=== PATIENT | female | born 1970 | race African-American/Black ===

== ENCOUNTER 2017-03-18 13:27 | Day surgery (SDC) | payer OTHER, BC ==
[2017-03-18 14:25] VITALS: BMI 21.4
[2017-03-18] MEDS ORDERED: PROPOFOL 20 ML ONE ×2 (15:07)
[2017-03-18 15:58] VITALS: TEMP 97.7
[2017-03-18 16:55] VITALS: BP 122/71; PULSE 59
== END 2017-03-18 16:55 | disposition home or self-care (01) ==
LOC: JASU-ENDO 13:27
PROVIDERS: ATTEND Internal Medicine Gastroenterology
PROC: 0DJD8ZZ Inspection of Lower Intestinal Tract, Via Natural or Artificial Opening Endoscopic (ICD-10-PCS; principal; 2017-03-18 14:30)
DX: Z12.11 Encounter for screening for malignant neoplasm of colon (principal); K57.30 Diverticulosis of large intestine without perforation or abscess without bleeding; K64.8 Other hemorrhoids; K63.89 Other specified diseases of intestine

== ENCOUNTER 2017-07-06 13:19 | Emergency (ER) | payer OTHER, BC ==
[2017-07-06 13:30] VITALS: BP 136/95; PULSE 96; TEMP 98.7; BMI 21.4
--- NOTE | 2017-07-06 13:44 | PDOC ---
History of Present Illness - General Chief Complaint: Headache Stated Complaint: HEADACHE Time Seen by Provider: 07/06/17 13:39 - History of Present Illness Initial Comments: 07/06/17 15:55 Chief complaint: Headache History of present illness: Patient complains of a recurrent headache for the last several days, intermittent, bandlike around the forehead, radiating to the occiput and both shoulders. Review of systems: No fever/chills, URI symptoms, sore throat, cough, chest pain , shortness of breath, abdominal pain, nausea, vomiting, diarrhea, visual or focal neurologic symptoms, unsteadiness of gait. Remainder systems reviewed and found to be negative Past medical history: Extensive past medical history including scleroderma, Raynaud's phenomenon, chronic neck and back pain, depression, anxiety, GERD, breast cancer in remission over 5 years. Medications: Extensive list of medications including nifedipine, Lyrica, morphine, Tylenol No. 4, Zantac, Klonopin, Wellbutrin, and Cymbalta. Social history: On disability, no alcohol or tobacco or drugs, stable home with family Family history: Reviewed and noncontributory including rheumatologic an autoimmune diseases, early coronary artery disease, metabolic disease including diabetes, and cancer Physical exam: Alert oriented 3 no acute distress cooperative Afebrile, vital signs normal Head atraumatic. PERRLA 4 mm, fundi benign with sharp disc margins and good central venous pulsations, ENT clear Neck supple without bruit mass or nodes Lungs clear with full breath sounds bilaterally. No wheezes rales or rhonchi CV S1 and S2 normal without murmur rub or gallop pulses full and symmetric no JVD or edema no bruits Abdomen benign Neurological C2 to 12 intact. No focal sensory or motor deficits. Strength symmetric. Gait stable and unimpaired. Cerebellar intact Extremities: Mild erythema and tapering of the fingertips consistent with scleroderma. Also some tightening of the skin is present in the face. Impression: Tension headache, versus migraine. Anxiety. Plan: Symptomatic treatment. Contact neurologist. Observe. Past History - Past Medical History Allergies/Adverse Reactions: Allergies Allergy/AdvReac Type Severity Reaction Status Date / Time No Known Drug Allergies Allergy Verified 07/06/17 13:20 NUTS Allergy ITCHING, Uncoded 07/06/17 13:20 DIFFICULTY BREATHING SEASONAL Allergy SNEEZING,WATERY Uncoded 07/06/17 13:20 EYES Home Medications: Ambulatory Orders Albuterol 0.083% Nebulizer Keisha [Ventolin 0.083% Nebulizer Soln -] 1 neb NEB Q4H PRN #1 box 01/16/13 Nifedipine ER 60 mg PO DAILY 06/02/15 Pregabalin [Lyrica] 150 mg PO DAILY 06/02/15 Methylphenidate HCl [Ritalin LA] 10 mg PO DAILY 06/03/15 Bupropion HCl [Wellbutrin Xl] 300 mg PO DAILY 03/18/17 Clonazepam [KlonoPIN] 0.5 mg PO TID 03/18/17 Methocarbamol 500 mg PO HS 03/18/17 Morphine Sulfate [Morphine Sulfate ER] 15 mg PO BID 03/18/17 Naloxegol Oxalate [Movantik] 12.5 mg PO DAILY 03/18/17 Ranitidine [Zantac -] 150 mg PO DAILY 03/18/17 Acetaminophen W/ Codeine #3 [Tylenol # 3 -] 1 tab PO PRN PRN 07/06/17 Anastrozole [Arimidex -] 1 mg PO DAILY 07/06/17 Bupropion HCl [Bupropion Xl] 300 mg PO DAILY 07/06/17 Diclofenac Sodium 50 mg PO TID PRN #15 tablet. 07/06/17 Duloxetine HCl [Cymbalta -] 30 mg PO DAILY 07/06/17 Hydroxyzine Pamoate [Vistaril -] 2 tab PO TID PRN #15 capsule 07/06/17 Anemia: Yes Asthma: Yes Cancer: Yes (LT BREAST) Cardiac Disorders: Yes (MVP,TACHYCARDIA) CVA: No COPD: No CHF: No Dementia: No Diabetes: No GI Disorders: Yes (DIVERTICULOSIS, IBS,HIatal hernia) Disorders: Yes (CYSTITIS) HTN: No Hypercholesterolemia: No Kidney Stones: Yes Liver Disease: No Psychiatric Problems: Yes (DEPRESSION,ANXIETY) Seizures: No Thyroid Disease: No Other medical history: REYNODS,SCLERADERMA,MIGRAINES,ULCERS, - Surgical History Abdominal Surgery: Yes Appendectomy: Yes Cardiac Surgery: No Cholecystectomy: No Lung Surgery: (collapse lungs) Neurologic Surgery: No Orthopedic Surgery: No - Immunization History Immunization Up to Date: Yes - Suicide/Smoking/Psychosocial Hx Smoking Status: No Smoking History: Current some day smoker Have you smoked in the past 12 months: Yes Number of Cigarettes Smoked Daily: 0 Information on smoking cessation initiated: Yes 'Breaking Loose' booklet given: 07/06/17 Hx Alcohol Use: No Drug/Substance Use Hx: No Substance Use Type: None Hx Substance Use Treatment: No *Physical Exam - Vital Signs Last Vital Signs Temp Pulse Resp BP Pulse Ox 98.7 F 96 H 20 136/95 99 07/06/17 13:20 07/06/17 13:20 07/06/17 13:20 07/06/17 13:20 07/06/17 13:20 ED Treatment Course - LABORATORY CBC & Chemistry Diagram: 07/06/17 14:30 07/06/17 14:30 Medical Decision Making - Medical Decision Making 07/06/17 16:00 Dr. Garcia contacted by phone. He is the patient's neurologist and knows her well. A recent see CT scan was negative and he does not recommend further imaging. Symptomatic treatment recommended and he will see the patient on Saturday in his office for further evaluation and treatment. Patient is improved with medication. Headache is resolving and she is much more relaxed, less anxious. Discharge with her son fully ambulatory and in no acute distress to follow-up as recommended with Dr. Garcia, or return to the emergency room if symptoms worsen. *DC/Admit/Observation/Transfer Diagnosis at time of Disposition: Migraine Qualifiers: Migraine type: other Status migrainosus presence: without status migrainosus Intractability: not intractable Qualified Code(s): G43.809 - Other migraine, not intractable, without status migrainosus - Discharge Dispostion Disposition: HOME Condition at time of disposition: Improved Admit: No - Prescriptions Prescriptions: Diclofenac Sodium 50 mg PO TID PRN #15 tablet.dr MUSE Reason: Headache Hydroxyzine Pamoate [Vistaril -] 2 tab PO TID PRN #15 capsule PRN Reason: headache, spasm. - Referrals Referrals: Jose Garcia MD [Staff Physician] - 2 Days - Patient Instructions Printed Discharge Instructions: DI for Migraine Additional Instructions: Rest, fluids, and medication as directed. See Dr. Garcia in 2 days for recheck. Return to the ER if symptoms worsen or any new symptoms develop. He has been contacted by phone and recommended that he see him on Saturday. - Post Discharge Activity
[2017-07-06] MEDS ORDERED: KETOROLAC TROMETHAMINE 30 MG/1 ML VIAL IVPUSH ONE (14:14)
[2017-07-06] MEDS ORDERED: hydrOXYzine PAMOATE 25 MG CAPSULE (FP) PO ONE ×2 (14:15→14:28)
[2017-07-06] MEDS ORDERED: KETOROLAC TROMETHAMINE 30 MG/1 ML VIAL ONE (14:28)
[2017-07-06 14:51] LABS: HEMATOCRIT 43.9 % (32.4-45.2); HEMOGLOBIN 14.5 GM/dl (10.7-15.3); MCH 30.7 pg (25.7-33.7); MEAN PLT VOLUME 8.3 fl (7.5-11.1); PLATELET COUNT 414 K/MM3 (134-434); RBC 4.72 M/mm3 (3.60-5.2); RDW 12.7 % (11.6-15.6); WHITE BLOOD COUNT 6.2 K/mm3 (4.0-10.8)
[2017-07-06 14:53] LABS: ADD RBC MORPHOLOGY YES
[2017-07-06 14:56] LABS: ALBUMIN 4.7 g/dl (3.5-5.0); ALK PHOS 61 U/L (32-92); ANION GAP 9 (8-16); BILIRUBIN,TOTAL 0.5 mg/dl (0.2-1.0); BLOOD UREA NITROGEN 23 mg/dl (7-18); CALCIUM 10.1 mg/dl (8.4-10.2); CHLORIDE 100 mmol/L (98-107); CO2 24 mmol/L (22-28); GLUCOSE,RANDOM 108 mg/dl (74-106); POTASSIUM 4.1 mmol/L (3.5-5.1); SGOT/AST 17 U/L (10-42); SGPT/ALT 14 U/L (10-40); SODIUM 133 mmol/L (136-145)
[2017-07-06] MEDS ORDERED: SODIUM CHLORIDE 500 ML IV STA (14:57)
[2017-07-06 14:59] LABS: PLATELET ESTIMATE ADEQUATE
== END 2017-07-06 15:39 | disposition home or self-care (01) ==
LOC: FER 13:19
PROC: 3E0233Z Introduction of Anti-inflammatory into Muscle, Percutaneous Approach (ICD-10-PCS; principal; 2017-07-06)
PROC: 3E0337Z Introduction of Electrolytic and Water Balance Substance into Peripheral Vein, Percutaneous Approach (ICD-10-PCS; 2017-07-06)
DX: G43.809 Other migraine, not intractable, without status migrainosus (principal); F41.8 Other specified anxiety disorders; M34.9 Systemic sclerosis, unspecified; J45.909 Unspecified asthma, uncomplicated; Z85.3 Personal history of malignant neoplasm of breast
CPT/HCPCS: 36415; 80053; 84703; 85025; 85651; 96361; 96374; 99282-25

== ENCOUNTER 2018-03-04 11:46 | Day surgery (SDC) | payer OTHER, BC ==
[2018-03-04 12:37] VITALS: BMI 23.4
[2018-03-04 13:10] VITALS: TEMP 97.6
[2018-03-04 14:57] VITALS: BP 109/72; PULSE 68
--- NOTE | 2018-03-06 15:32 | PATH ---
Surgical Pathology Report Patient Name: VERONICA LEHMAN [facility]. Rec. #: [id number] /Age/Gender: 1970 (Age: 47) / F Account: [id number] Location: [facility]-ENDOSCOPY Taken: 03/04/2018 Received: 03/04/2018 Reported: 03/06/2018 Physicians: Josué Dobbs D.O. Specimen(s) Received A: BX ANTRUM EROSION B: BX BODY AND ANGULARIS Clinical History Abnormal x-ray finding Postoperative diagnosis: Gastritis Final Diagnosis A. ANTRAL EROSION, BIOPSY: MILD CHRONIC GASTRITIS. IMMUNOSTAIN IS NEGATIVE FOR H PYLORI ORGANISMS. B. ANGULARIS AND BODY, BIOPSY: MILD CHRONIC GASTRITIS. IMMUNOSTAIN IS NEGATIVE FOR H. PYLORI ORGANISMS. Electronically Signed Nneka Oropeza M.D. Gross Description A. Received in formalin, labeled "biopsy antral erosion" are 3 dwyer, irregular portions of soft tissue ranging from 0.1-0.3 cm. in greatest dimension. The specimens are submitted in toto in one cassette. B. Received in formalin, labeled "biopsy angularis and body" are 3 dwyer, irregular portions of soft tissue ranging from 0.2-0.5 cm. in greatest dimension. The specimens are submitted in toto in one cassette. 03/04/2018 saudi03/04/2018
== END 2018-03-04 14:25 | disposition home or self-care (01) ==
LOC: JASU-ENDO 11:46
PROVIDERS: ATTEND Internal Medicine Gastroenterology
PROC: 0DB68ZX Excision of Stomach, Via Natural or Artificial Opening Endoscopic, Diagnostic (ICD-10-PCS; principal; 2018-03-04 10:15)
DX: K29.50 Unspecified chronic gastritis without bleeding (principal)
CPT/HCPCS: 84703; 88305-TC; 88342-TC

== ENCOUNTER 2020-05-14 16:14 | Inpatient (IN) | payer OTHER, BC ==
[2020-05-14] MEDS ORDERED: ACETAMINOPHEN 1000 MG/100 ML VIAL (NON FORMULARY) IVPB ONE (17:31)
[2020-05-14 17:37] LABS: BASO % 0.5 % (0-2.0); EOS % 0.2 % (0-4.5); HEMATOCRIT 41.1 % (32.4-45.2); HEMOGLOBIN 13.7 GM/dL (10.7-15.3); LYMPH % 7.4 % (8-40); MCH 30.7 pg (25.7-33.7); MCHC 33.3 g/dl (32.0-36.0); MEAN CELL VOLUME 92.2 fl (80-96); MEAN PLT VOLUME 8.4 fl (7.5-11.1); MONO % 5.1 % (3.8-10.2); NEUT % 86.8 % (42.8-82.8); PLATELET COUNT 364 K/MM3 (134-434); RBC 4.46 M/mm3 (3.60-5.2); RDW 13.9 % (11.6-15.6); WHITE BLOOD COUNT 8.9 K/mm3 (4.0-10.0)
[2020-05-14] MEDS ORDERED: ACETAMINOPHEN INJECTION 100 ML IVPB ONE (17:48)
[2020-05-14 17:49] LABS: INR 1.1 (0.83-1.09); PROTHROMBIN TIME (PATIENT) 13.3 SEC (9.7-13.0)
[2020-05-14 17:51] LABS: POTASSIUM 4.6 mmol/L (3.5-5.1)
[2020-05-14 17:52] LABS: ACTIVATED PTT 36.8 SECONDS (25.2-36.5)
[2020-05-14 17:54] LABS: ALBUMIN 2.4 g/dl (3.4-5.0); CALCIUM 7.3 mg/dL (8.5-10.1); MAGNESIUM 2.9 mg/dL (1.8-2.4)
[2020-05-14 17:56] LABS: BILIRUBIN,DIRECT 0.2 mg/dL (0.0-0.2)
[2020-05-14 17:57] LABS: CREATININE 0.6 mg/dL (0.55-1.3)
[2020-05-14 17:58] LABS: VENOUS BASE EXCESS -0.6 mmol/L (-2-2); VENOUS O2 SATURATION 33.7 % (70-80); VENOUS PCO2 41.7 mmHg (38-52); VENOUS PH 7.386 (7.310-7.410)
[2020-05-14 17:59] LABS: BILIRUBIN,TOTAL 0.6 mg/dL (0.2-1); TOT PROT 5.7 g/dl (6.4-8.2)
[2020-05-14 18:00] LABS: N-TERMINAL BNP 1099.5 pg/ml (5-125)
[2020-05-14] MEDS ORDERED: DEXAMETHASONE SOD PHOSPHATE 10 MG/1 ML VIAL IVPUSH ONE (19:05)
[2020-05-14] MEDS ORDERED: CEFTRIAXONE 1,000 MG in DEXTROSE 5%-WATER - 50 ML IVPB ONE (19:05)
[2020-05-14] MEDS ORDERED: AZITHROMYCIN IVPB 500 MG in DEXTROSE 5%-WATER - 250 ML IVPB ONE (19:05)
[2020-05-14] MEDS ORDERED: ASPIRIN 81 MG CHEWABLE TABLETS PO ONE (19:11)
[2020-05-14] MEDS ORDERED: ASPIRIN 81 MG CHEWABLE TABLETS ONE (20:33)
[2020-05-14] MEDS ORDERED: CEFTRIAXONE 1 GM/50 ML BAG ONE (20:33)
[2020-05-14] MEDS ORDERED: DEXAMETHASONE SOD PHOSPHATE 10 MG/1 ML VIAL ONE (20:33)
[2020-05-14] MEDS ORDERED: AZITHROMYCIN IVPB 500 MG/250 ML BAG IVPB ONE (20:33)
[2020-05-14] MEDS ORDERED: SODIUM CHLORIDE 500 ML IV STA (22:05)
[2020-05-14 23:01] LABS: URINE APPEARANCE CLEAR; URINE BILIRUBIN NEGATIVE (NEGATIVE); URINE COLOR YELLOW; URINE GLUCOSE (UA) NEGATIVE (NEGATIVE); URINE KETONE 15 mg/dl (NEGATIVE); URINE NITRITE NEGATIVE (NEGATIVE); URINE PROTEIN 100 (NEGATIVE); URINE UROBILINOGEN 0.2 mg/dL (0.2-1.0)
[2020-05-14 23:02] LABS: URINE LEUK ESTERASE 1+ (NEGATIVE)
[2020-05-14] MEDS ORDERED: ZINC SULFATE 220 MG CAPSULE (FP) ONE (23:11)
[2020-05-14] MEDS ORDERED: ENOXAPARIN NA (PORCINE) 60 MG/0.6 ML DISP.SYRIN SQ ONE (23:11)
[2020-05-14] MEDS ORDERED: ASCORBIC ACID 500 MG TABLET (FP) ONE (23:11)
[2020-05-14] MEDS: ENOXAPARIN NA (PORCINE) 60 MG/0.6 ML DISP.SYRIN SQ SCH (23:28)
[2020-05-14] MEDS: ASCORBIC ACID 500 MG TABLET (FP) PO SCH (23:29)
[2020-05-14] MEDS: ZINC SULFATE 220 MG CAPSULE (FP) PO SCH (23:29)
[2020-05-15] MEDS ORDERED: QUEtiapine FUMARATE 100 MG TABLET (FP) ONE (00:20)
[2020-05-15] MEDS ORDERED: SODIUM CHLORIDE 500 ML IV STA (06:24)
[2020-05-15 07:29] LABS: BASO % 0.4 % (0-2.0); EOS % 0.1 % (0-4.5); HEMATOCRIT 36.6 % (32.4-45.2); HEMOGLOBIN 12.1 GM/dL (10.7-15.3); LYMPH % 9.3 % (8-40); MCH 30.1 pg (25.7-33.7); MEAN CELL VOLUME 91.2 fl (80-96); MEAN PLT VOLUME 8.7 fl (7.5-11.1); MONO % 5.1 % (3.8-10.2); NEUT % 85.1 % (42.8-82.8); PLATELET COUNT 410 K/MM3 (134-434); RBC 4.01 M/mm3 (3.60-5.2); RDW 14.2 % (11.6-15.6); WHITE BLOOD COUNT 5.4 K/mm3 (4.0-10.0)
[2020-05-15 07:36] LABS: POTASSIUM 4.5 mmol/L (3.5-5.1)
[2020-05-15 07:46] LABS: CALCIUM 7.4 mg/dL (8.5-10.1)
[2020-05-15 07:47] LABS: ALBUMIN 2.3 g/dl (3.4-5.0); MAGNESIUM 2.8 mg/dL (1.8-2.4)
[2020-05-15 07:49] LABS: CREATININE 0.5 mg/dL (0.55-1.3)
[2020-05-15 07:50] LABS: PHOSPHOROUS 3.7 mg/dL (2.5-4.9)
[2020-05-15 07:51] LABS: BILIRUBIN,TOTAL 0.9 mg/dL (0.2-1); TOT PROT 5.6 g/dl (6.4-8.2)
[2020-05-15] MEDS ORDERED: DEXAMETHASONE SOD PHOSPHATE 4 MG/1 ML VIAL ONE (08:06)
[2020-05-15] MEDS ORDERED: FAMOTIDINE 20 MG TABLET ONE (08:06)
[2020-05-15] MEDS ORDERED: ZINC SULFATE 220 MG CAPSULE (FP) ONE (08:06)
[2020-05-15] MEDS ORDERED: ASCORBIC ACID 500 MG TABLET (FP) ONE (08:06)
[2020-05-15] MEDS ORDERED: ENOXAPARIN NA (PORCINE) 60 MG/0.6 ML DISP.SYRIN SQ ONE (08:07)
[2020-05-15] MEDS ORDERED: PT OWN MED DRAWER 7, Y5N ONE (08:07)
[2020-05-15] MEDS ORDERED: CEFTRIAXONE 1 GM/50 ML BAG ONE (08:07)
[2020-05-15] MEDS: CHOLECALCIFEROL (VIT D3) 1,000 UNIT (25 MCG) TABLET PO SCH (09:51)
[2020-05-15] MEDS: DEXAMETHASONE SOD PHOSPHATE 4 MG/1 ML VIAL IVPUSH SCH (09:51)
[2020-05-15] MEDS: ZINC SULFATE 220 MG CAPSULE (FP) PO SCH ×2 (09:51→22:59)
[2020-05-15] MEDS: ENOXAPARIN NA (PORCINE) 60 MG/0.6 ML DISP.SYRIN SQ SCH ×2 (09:51→22:58)
[2020-05-15] MEDS: FAMOTIDINE 20 MG TABLET PO SCH (09:51)
[2020-05-15] MEDS: CEFTRIAXONE 1 GM in DEXTROSE 5%-WATER - 50 ML IVPB SCH (09:52)
[2020-05-15] MEDS: ASCORBIC ACID 500 MG TABLET (FP) PO SCH ×2 (09:52→22:59)
[2020-05-15] MEDS ORDERED: AZITHROMYCIN IVPB 250 MG in DEXTROSE 5%-WATER - 250 ML IVPB SCH (10:00)
[2020-05-15] MEDS ORDERED: REMDESIVIR 200 MG in SODIUM CHLORIDE 210 ML IVPB ONE (20:00)
[2020-05-15] MEDS ORDERED: ASPIRIN 81 MG CHEWABLE TABLETS PO ONE (20:36)
[2020-05-15] MEDS ORDERED: QUEtiapine FUMARATE 100 MG TABLET (FP) PO SCH (22:00)
[2020-05-15] MEDS ORDERED: FLU VACCINE (FLULAVAL) PF 60 MCG/0.5 ML SYRINGE 2020-2021 IM ONE (22:37)
[2020-05-15] MEDS ORDERED: PNEUMOC 13-VAL CONJ-DIP CRM/PF 0.5 ML DISP.SYRIN IM ONE (22:37)
[2020-05-15] MEDS: QUEtiapine FUMARATE 100 MG TABLET (FP) PO SCH (22:59)
[2020-05-16 07:23] LABS: BASO % 0.2 % (0-2.0); HEMATOCRIT 32.8 % (32.4-45.2); HEMOGLOBIN 10.7 GM/dL (10.7-15.3); LYMPH % 8.9 % (8-40); MCHC 32.8 g/dl (32.0-36.0); MEAN CELL VOLUME 91.5 fl (80-96); MEAN PLT VOLUME 8.2 fl (7.5-11.1); NEUT % 82.9 % (42.8-82.8); PLATELET COUNT 492 K/MM3 (134-434); RBC 3.58 M/mm3 (3.60-5.2); RDW 13.9 % (11.6-15.6)
[2020-05-16 07:46] LABS: POTASSIUM 4.3 mmol/L (3.5-5.1)
[2020-05-16 07:53] LABS: CALCIUM 8.2 mg/dL (8.5-10.1)
[2020-05-16 07:54] LABS: ALBUMIN 2.5 g/dl (3.4-5.0); BLOOD UREA NITROGEN 15.3 mg/dL (7-18); MAGNESIUM 2.8 mg/dL (1.8-2.4)
[2020-05-16 07:57] LABS: CREATININE 0.5 mg/dL (0.55-1.3)
[2020-05-16 07:58] LABS: BILIRUBIN,TOTAL 0.4 mg/dL (0.2-1); TOT PROT 5.6 g/dl (6.4-8.2)
[2020-05-16] MEDS ORDERED: cefTRIAXone SODIUM 1 GM VIAL ONE (09:56)
[2020-05-16] MEDS ORDERED: DEXTROSE 5%-WATER - 50 ML IVPB ONE (09:56)
[2020-05-16] MEDS: ASPIRIN 81 MG CHEWABLE TABLETS PO SCH (10:32)
[2020-05-16] MEDS: ENOXAPARIN NA (PORCINE) 60 MG/0.6 ML DISP.SYRIN SQ SCH ×2 (10:32→21:34)
[2020-05-16] MEDS: DEXAMETHASONE SOD PHOSPHATE 4 MG/1 ML VIAL IVPUSH SCH (10:32)
[2020-05-16] MEDS: ZINC SULFATE 220 MG CAPSULE (FP) PO SCH ×2 (10:33→21:34)
[2020-05-16] MEDS: ASCORBIC ACID 500 MG TABLET (FP) PO SCH ×2 (10:33→21:34)
[2020-05-16] MEDS: CHOLECALCIFEROL (VIT D3) 1,000 UNIT (25 MCG) TABLET PO SCH (10:33)
[2020-05-16] MEDS: FAMOTIDINE 20 MG TABLET PO SCH (10:33)
[2020-05-16] MEDS: CEFTRIAXONE 1 GM in DEXTROSE 5%-WATER - 50 ML IVPB SCH (10:33)
[2020-05-16] MEDS: REMDESIVIR 100 MG in SODIUM CHLORIDE 230 ML IVPB SCH (10:33)
[2020-05-16] MEDS: QUEtiapine FUMARATE 100 MG TABLET (FP) PO SCH (21:34)
[2020-05-16] MEDS ORDERED: MELATONIN 5 MG TABLETS PO ONE (23:38)
[2020-05-17 06:48] LABS: BASO % 0.1 % (0-2.0); EOS % 0.1 % (0-4.5); HEMATOCRIT 33.4 % (32.4-45.2); HEMOGLOBIN 10.7 GM/dL (10.7-15.3); LYMPH % 8.8 % (8-40); MCH 29.4 pg (25.7-33.7); MCHC 32.1 g/dl (32.0-36.0); MEAN CELL VOLUME 91.5 fl (80-96); MEAN PLT VOLUME 8.5 fl (7.5-11.1); PLATELET COUNT 597 K/MM3 (134-434); RBC 3.65 M/mm3 (3.60-5.2); RDW 13.6 % (11.6-15.6); WHITE BLOOD COUNT 15.5 K/mm3 (4.0-10.0)
[2020-05-17 07:04] LABS: POTASSIUM 4.7 mmol/L (3.5-5.1)
[2020-05-17 07:11] LABS: CALCIUM 8.2 mg/dL (8.5-10.1)
[2020-05-17 07:12] LABS: ALBUMIN 2.5 g/dl (3.4-5.0); BLOOD UREA NITROGEN 18.4 mg/dL (7-18)
[2020-05-17 07:15] LABS: CREATININE 0.5 mg/dL (0.55-1.3)
[2020-05-17 07:17] LABS: BILIRUBIN,TOTAL 0.7 mg/dL (0.2-1); TOT PROT 5.6 g/dl (6.4-8.2)
[2020-05-17] MEDS ORDERED: cefTRIAXone SODIUM 1 GM VIAL ONE (08:38)
[2020-05-17] MEDS ORDERED: DEXTROSE 5%-WATER - 50 ML IVPB ONE (08:38)
[2020-05-17] MEDS: CEFTRIAXONE 1 GM in DEXTROSE 5%-WATER - 50 ML IVPB SCH (09:36)
[2020-05-17] MEDS: ASCORBIC ACID 500 MG TABLET (FP) PO SCH ×2 (09:37→21:08)
[2020-05-17] MEDS: ASPIRIN 81 MG CHEWABLE TABLETS PO SCH (09:37)
[2020-05-17] MEDS: ZINC SULFATE 220 MG CAPSULE (FP) PO SCH ×2 (09:37→21:08)
[2020-05-17] MEDS: ENOXAPARIN NA (PORCINE) 60 MG/0.6 ML DISP.SYRIN SQ SCH ×2 (09:37→21:08)
[2020-05-17] MEDS: DEXAMETHASONE SOD PHOSPHATE 4 MG/1 ML VIAL IVPUSH SCH (09:38)
[2020-05-17] MEDS: FAMOTIDINE 20 MG TABLET PO SCH (09:39)
[2020-05-17] MEDS: CHOLECALCIFEROL (VIT D3) 1,000 UNIT (25 MCG) TABLET PO SCH (09:39)
[2020-05-17] MEDS: REMDESIVIR 100 MG in SODIUM CHLORIDE 230 ML IVPB SCH (09:44)
[2020-05-17 11:13] LABS: ANISOCYTOSIS 0; MACROCYTOSIS 0; PLATELET ESTIMATE INCREASED
[2020-05-17] MEDS ORDERED: morphine SULFATE 4 MG/ML VIAL IVPUSH PRN (12:20)
[2020-05-17] MEDS: QUEtiapine FUMARATE 100 MG TABLET (FP) PO SCH (21:08)
[2020-05-17] MEDS: MORPHINE SULFATE 2 MG/ML VIAL IVPUSH PRN (22:08)
[2020-05-18 07:16] LABS: BASO % 0.2 % (0-2.0); EOS % 1.4 % (0-4.5); HEMATOCRIT 34.6 % (32.4-45.2); HEMOGLOBIN 11.6 GM/dL (10.7-15.3); MCH 30.4 pg (25.7-33.7); MCHC 33.4 g/dl (32.0-36.0); MEAN PLT VOLUME 8.5 fl (7.5-11.1); MONO % 6.6 % (3.8-10.2); NEUT % 77.8 % (42.8-82.8); PLATELET COUNT 635 K/MM3 (134-434); WHITE BLOOD COUNT 14.6 K/mm3 (4.0-10.0)
[2020-05-18 07:24] LABS: POTASSIUM 4.8 mmol/L (3.5-5.1)
[2020-05-18 07:31] LABS: BLOOD UREA NITROGEN 13.1 mg/dL (7-18)
[2020-05-18 07:32] LABS: ALBUMIN 2.5 g/dl (3.4-5.0); MAGNESIUM 2.3 mg/dL (1.8-2.4)
[2020-05-18 07:35] LABS: CREATININE 0.4 mg/dL (0.55-1.3)
[2020-05-18 07:36] LABS: BILIRUBIN,TOTAL 0.5 mg/dL (0.2-1); TOT PROT 5.7 g/dl (6.4-8.2)
[2020-05-18] MEDS ORDERED: cefTRIAXone SODIUM 1 GM VIAL ONE (09:28)
[2020-05-18] MEDS ORDERED: DEXTROSE 5%-WATER - 50 ML IVPB ONE (09:28)
[2020-05-18] MEDS: CEFTRIAXONE 1 GM in DEXTROSE 5%-WATER - 50 ML IVPB SCH (09:47)
[2020-05-18] MEDS: REMDESIVIR 100 MG in SODIUM CHLORIDE 230 ML IVPB SCH (09:47)
[2020-05-18] MEDS: ENOXAPARIN NA (PORCINE) 60 MG/0.6 ML DISP.SYRIN SQ SCH ×2 (09:47→21:28)
[2020-05-18] MEDS: MORPHINE SULFATE 2 MG/ML VIAL IVPUSH PRN (09:48)
[2020-05-18] MEDS: ASCORBIC ACID 500 MG TABLET (FP) PO SCH ×2 (09:49→21:28)
[2020-05-18] MEDS: CHOLECALCIFEROL (VIT D3) 1,000 UNIT (25 MCG) TABLET PO SCH (09:49)
[2020-05-18] MEDS: FAMOTIDINE 20 MG TABLET PO SCH (09:49)
[2020-05-18] MEDS: ASPIRIN 81 MG CHEWABLE TABLETS PO SCH (09:49)
[2020-05-18] MEDS: DEXAMETHASONE SOD PHOSPHATE 4 MG/1 ML VIAL IVPUSH SCH (09:49)
[2020-05-18] MEDS: ZINC SULFATE 220 MG CAPSULE (FP) PO SCH ×2 (09:49→21:28)
[2020-05-18 10:44] LABS: ANISOCYTOSIS 0; MACROCYTOSIS 0; PLATELET ESTIMATE INCREASED
[2020-05-18] MEDS: QUEtiapine FUMARATE 100 MG TABLET (FP) PO SCH (21:28)
[2020-05-19] MEDS ORDERED: NALOXONE HCL 0.4 MG/ML VIAL ONE (01:08)
[2020-05-19] MEDS: ASCORBIC ACID 500 MG TABLET (FP) PO SCH ×2 (09:41→22:03)
[2020-05-19] MEDS: ASPIRIN 81 MG CHEWABLE TABLETS PO SCH (09:41)
[2020-05-19] MEDS: DEXAMETHASONE SOD PHOSPHATE 4 MG/1 ML VIAL IVPUSH SCH (09:41)
[2020-05-19] MEDS: ZINC SULFATE 220 MG CAPSULE (FP) PO SCH ×2 (09:41→22:03)
[2020-05-19] MEDS: FAMOTIDINE 20 MG TABLET PO SCH (09:41)
[2020-05-19] MEDS: ENOXAPARIN NA (PORCINE) 60 MG/0.6 ML DISP.SYRIN SQ SCH ×2 (09:41→22:03)
[2020-05-19] MEDS: CHOLECALCIFEROL (VIT D3) 1,000 UNIT (25 MCG) TABLET PO SCH (09:42)
[2020-05-19] MEDS: REMDESIVIR 100 MG in SODIUM CHLORIDE 230 ML IVPB SCH (09:42)
[2020-05-19] MEDS ORDERED: MORPHINE SULFATE 2 MG/ML VIAL IVPUSH PRN (13:09)
[2020-05-19] MEDS ORDERED: morphine SULFATE 4 MG/ML VIAL IVPUSH PRN (13:09)
[2020-05-19] MEDS ORDERED: ENOXAPARIN NA (PORCINE) 60 MG/0.6 ML DISP.SYRIN SQ SCH (22:00)
[2020-05-19] MEDS: QUEtiapine FUMARATE 100 MG TABLET (FP) PO SCH (22:03)
[2020-05-20 08:44] LABS: BASO % 0.4 % (0-2.0); EOS % 1.2 % (0-4.5); HEMATOCRIT 37.3 % (32.4-45.2); HEMOGLOBIN 12.2 GM/dL (10.7-15.3); MCH 30.1 pg (25.7-33.7); MCHC 32.8 g/dl (32.0-36.0); MEAN CELL VOLUME 91.9 fl (80-96); MEAN PLT VOLUME 7.9 fl (7.5-11.1); MONO % 8.5 % (3.8-10.2); NEUT % 76.9 % (42.8-82.8); PLATELET COUNT 813 K/MM3 (134-434); RBC 4.06 M/mm3 (3.60-5.2); RDW 14.2 % (11.6-15.6); WHITE BLOOD COUNT 19.5 K/mm3 (4.0-10.0)
[2020-05-20 08:52] LABS: POTASSIUM 4.7 mmol/L (3.5-5.1)
[2020-05-20 08:58] LABS: ALBUMIN 2.7 g/dl (3.4-5.0); CALCIUM 8.7 mg/dL (8.5-10.1)
[2020-05-20 08:59] LABS: BLOOD UREA NITROGEN 17.7 mg/dL (7-18); MAGNESIUM 2.5 mg/dL (1.8-2.4)
[2020-05-20 09:01] LABS: CREATININE 0.5 mg/dL (0.55-1.3)
[2020-05-20 09:03] LABS: BILIRUBIN,TOTAL 0.5 mg/dL (0.2-1); TOT PROT 6.3 g/dl (6.4-8.2)
[2020-05-20] MEDS: DEXAMETHASONE SOD PHOSPHATE 4 MG/1 ML VIAL IVPUSH SCH (09:14)
[2020-05-20] MEDS: ZINC SULFATE 220 MG CAPSULE (FP) PO SCH ×2 (09:15→22:16)
[2020-05-20] MEDS: ASCORBIC ACID 500 MG TABLET (FP) PO SCH ×2 (09:15→22:16)
[2020-05-20] MEDS: CHOLECALCIFEROL (VIT D3) 1,000 UNIT (25 MCG) TABLET PO SCH (09:15)
[2020-05-20] MEDS: ENOXAPARIN NA (PORCINE) 60 MG/0.6 ML DISP.SYRIN SQ SCH ×2 (09:15→22:16)
[2020-05-20] MEDS: FAMOTIDINE 20 MG TABLET PO SCH (09:15)
[2020-05-20] MEDS: ASPIRIN 81 MG CHEWABLE TABLETS PO SCH (09:15)
[2020-05-20 10:06] LABS: ANISOCYTOSIS 0; MACROCYTOSIS 0; PLATELET ESTIMATE NORMAL
[2020-05-20] MEDS ORDERED: traMADol HCL 50 MG TABLET PO PRN (15:55)
[2020-05-20] MEDS ORDERED: SODIUM CHLORIDE 0.9% 500 ML INFUS.BAG IV ONE (21:26)
[2020-05-20] MEDS: QUEtiapine FUMARATE 100 MG TABLET (FP) PO SCH (22:16)
[2020-05-21] MEDS: MORPHINE SULFATE 2 MG/ML VIAL IVPUSH PRN ×2 (00:37→22:18)
[2020-05-21] MEDS: MELATONIN 5 MG TABLETS PO PRN ×2 (00:38→22:18)
[2020-05-21] MEDS ORDERED: SODIUM CHLORIDE 250 ML IV STA ×2 (01:31→04:14)
[2020-05-21 07:53] LABS: POTASSIUM 4.1 mmol/L (3.5-5.1)
[2020-05-21 08:02] LABS: ALBUMIN 2.2 g/dl (3.4-5.0); BLOOD UREA NITROGEN 16.2 mg/dL (7-18); CALCIUM 7.5 mg/dL (8.5-10.1)
[2020-05-21 08:03] LABS: CREATININE 0.5 mg/dL (0.55-1.3)
[2020-05-21 08:05] LABS: BILIRUBIN,TOTAL 0.6 mg/dL (0.2-1); TOT PROT 4.9 g/dl (6.4-8.2)
[2020-05-21 08:07] LABS: BASO % 0.6 % (0-2.0); EOS % 1.4 % (0-4.5); HEMATOCRIT 34.9 % (32.4-45.2); HEMOGLOBIN 11.6 GM/dL (10.7-15.3); MCHC 33.3 g/dl (32.0-36.0); MEAN CELL VOLUME 93.2 fl (80-96); MEAN PLT VOLUME 8.3 fl (7.5-11.1); PLATELET COUNT 658 K/MM3 (134-434); RBC 3.74 M/mm3 (3.60-5.2); WHITE BLOOD COUNT 14.6 K/mm3 (4.0-10.0)
[2020-05-21 09:36] LABS: ANISOCYTOSIS 0; HELMET CELLS 0; HOWELL-JOLLY BODIES 0; MACROCYTOSIS 0; OVALOCYTE 0; PLATELET ESTIMATE INCREASED; ROULEAU 0; SICKELED CELLS 0; TARGET CELLS 0; TEAR DROP CELLS 0; TOXIC GRANULATION 0
[2020-05-21] MEDS: ZINC SULFATE 220 MG CAPSULE (FP) PO SCH ×2 (10:33→22:18)
[2020-05-21] MEDS: CHOLECALCIFEROL (VIT D3) 1,000 UNIT (25 MCG) TABLET PO SCH (10:33)
[2020-05-21] MEDS: ASPIRIN 81 MG CHEWABLE TABLETS PO SCH (10:33)
[2020-05-21] MEDS: ASCORBIC ACID 500 MG TABLET (FP) PO SCH ×2 (10:34→22:18)
[2020-05-21] MEDS: DEXAMETHASONE SOD PHOSPHATE 4 MG/1 ML VIAL IVPUSH SCH (10:34)
[2020-05-21] MEDS: FAMOTIDINE 20 MG TABLET PO SCH (10:34)
[2020-05-21] MEDS: ENOXAPARIN NA (PORCINE) 60 MG/0.6 ML DISP.SYRIN SQ SCH ×2 (10:35→22:18)
[2020-05-21 19:15] VITALS: BMI 20.3
[2020-05-21] MEDS: QUEtiapine FUMARATE 100 MG TABLET (FP) PO SCH (22:18)
[2020-05-22 07:03] LABS: BASO % 0.4 % (0-2.0); EOS % 1.3 % (0-4.5); HEMOGLOBIN 11.9 GM/dL (10.7-15.3); MCH 30.6 pg (25.7-33.7); MCHC 33.2 g/dl (32.0-36.0); MEAN PLT VOLUME 7.3 fl (7.5-11.1); MONO % 8.2 % (3.8-10.2); NEUT % 75.1 % (42.8-82.8); PLATELET COUNT 712 K/MM3 (134-434); RBC 3.91 M/mm3 (3.60-5.2); RDW 14.1 % (11.6-15.6); WHITE BLOOD COUNT 15.1 K/mm3 (4.0-10.0)
[2020-05-22 07:22] LABS: POTASSIUM 4.4 mmol/L (3.5-5.1)
[2020-05-22 07:33] LABS: BLOOD UREA NITROGEN 13.6 mg/dL (7-18); CALCIUM 8.5 mg/dL (8.5-10.1)
[2020-05-22 07:34] LABS: ALBUMIN 2.6 g/dl (3.4-5.0); BILIRUBIN,TOTAL 0.4 mg/dL (0.2-1); MAGNESIUM 2.1 mg/dL (1.8-2.4); TOT PROT 5.8 g/dl (6.4-8.2)
[2020-05-22 07:36] LABS: CREATININE 0.5 mg/dL (0.55-1.3)
[2020-05-22] MEDS: ZINC SULFATE 220 MG CAPSULE (FP) PO SCH ×2 (09:43→23:02)
[2020-05-22] MEDS: ASCORBIC ACID 500 MG TABLET (FP) PO SCH ×2 (09:43→23:02)
[2020-05-22] MEDS: ASPIRIN 81 MG CHEWABLE TABLETS PO SCH (09:43)
[2020-05-22] MEDS: CHOLECALCIFEROL (VIT D3) 1,000 UNIT (25 MCG) TABLET PO SCH (09:43)
[2020-05-22] MEDS: FAMOTIDINE 20 MG TABLET PO SCH (09:43)
[2020-05-22] MEDS: ENOXAPARIN NA (PORCINE) 60 MG/0.6 ML DISP.SYRIN SQ SCH ×2 (09:43→23:02)
[2020-05-22] MEDS: MORPHINE SULFATE 2 MG/ML VIAL IVPUSH PRN (09:44)
[2020-05-22] MEDS: DEXAMETHASONE SOD PHOSPHATE 10 MG/1 ML VIAL IVPUSH SCH (09:47)
[2020-05-22 10:48] LABS: ANISOCYTOSIS 1+; MACROCYTOSIS 0; PLATELET ESTIMATE INCREASED
[2020-05-22] MEDS: LIDOCAINE 5% TOPICAL PATCH TP SCH (16:48)
[2020-05-22] MEDS ORDERED: LIDOCAINE PATCH REMOVAL MC SCH (22:00)
[2020-05-22] MEDS: QUEtiapine FUMARATE 100 MG TABLET (FP) PO SCH (23:02)
[2020-05-23 01:11] VITALS: TEMP 98.1
[2020-05-23 07:58] LABS: BASO % 0.3 % (0-2.0); EOS % 0.9 % (0-4.5); HEMATOCRIT 35.5 % (32.4-45.2); HEMOGLOBIN 11.7 GM/dL (10.7-15.3); LYMPH % 16.7 % (8-40); MEAN PLT VOLUME 7.7 fl (7.5-11.1); MONO % 9.3 % (3.8-10.2); NEUT % 72.8 % (42.8-82.8); PLATELET COUNT 716 K/MM3 (134-434); RDW 14.2 % (11.6-15.6); WHITE BLOOD COUNT 14.5 K/mm3 (4.0-10.0)
[2020-05-23 08:07] LABS: CHLORIDE 100 mmol/L (98-107); POTASSIUM 4.6 mmol/L (3.5-5.1); SODIUM 136 mmol/L (136-145)
[2020-05-23 08:11] LABS: ALBUMIN 2.6 g/dl (3.4-5.0); ANION GAP 8 MMOL/L (8-16); BLOOD UREA NITROGEN 18.8 mg/dL (7-18); CALCIUM 8.3 mg/dL (8.5-10.1); CO2 28 mmol/L (21-32); GLUCOSE,RANDOM 81 mg/dL (74-106)
[2020-05-23 08:14] LABS: CREATININE 0.5 mg/dL (0.55-1.3); SGOT/AST 15 U/L (15-37); SGPT/ALT 41 U/L (13-61)
[2020-05-23 08:16] LABS: BILIRUBIN,TOTAL 0.5 mg/dL (0.2-1); LDH 230 U/L (84-246); TOT PROT 5.8 g/dl (6.4-8.2)
[2020-05-23 08:17] LABS: ALK PHOS 61 U/L (45-117)
[2020-05-23 08:49] LABS: ANISOCYTOSIS 0; MACROCYTOSIS 0; PLATELET ESTIMATE INCREASED
[2020-05-23] MEDS ORDERED: APIXABAN 5 MG TABLET PO SCH (10:00)
[2020-05-23] MEDS: DEXAMETHASONE SOD PHOSPHATE 10 MG/1 ML VIAL IVPUSH SCH (10:53)
[2020-05-23] MEDS: ASCORBIC ACID 500 MG TABLET (FP) PO SCH (10:54)
[2020-05-23] MEDS: ASPIRIN 81 MG CHEWABLE TABLETS PO SCH (10:54)
[2020-05-23] MEDS: FAMOTIDINE 20 MG TABLET PO SCH (10:54)
[2020-05-23] MEDS: CHOLECALCIFEROL (VIT D3) 1,000 UNIT (25 MCG) TABLET PO SCH (10:55)
[2020-05-23] MEDS: LIDOCAINE 5% TOPICAL PATCH TP SCH (10:55)
[2020-05-23] MEDS: ZINC SULFATE 220 MG CAPSULE (FP) PO SCH (10:55)
[2020-05-23 11:58] VITALS: BP 86/50; PULSE 87
== END 2020-05-23 12:22 | DRG 177 ==
LOC: JER 16:14 → JERBED 20:58 → JICU 05-15 22:17 → J4W 05-19 13:09
PROVIDERS: ADMIT Hospitalist; ATTEND Nurse Practitioner Acute Care
PROC: 8E0ZXY6 Isolation (ICD-10-PCS; 2020-05-14)
PROC: XW13325 Transfusion of Convalescent Plasma (Nonautologous) into Peripheral Vein, Percutaneous Approach, New Technology Group 5 (ICD-10-PCS; principal; 2020-05-16)
PROC: XW033E5 Introduction of Remdesivir Anti-infective into Peripheral Vein, Percutaneous Approach, New Technology Group 5 (ICD-10-PCS; 2020-05-16)
DX: U07.1 COVID-19 (principal); J96.01 Acute respiratory failure with hypoxia; J12.89 Other viral pneumonia; M62.82 Rhabdomyolysis; I24.8 Other forms of acute ischemic heart disease; I50.30 Unspecified diastolic (congestive) heart failure; J45.909 Unspecified asthma, uncomplicated; M34.9 Systemic sclerosis, unspecified; I73.00 Raynaud's syndrome without gangrene; I34.1 Nonrheumatic mitral (valve) prolapse; K57.90 Diverticulosis of intestine, part unspecified, without perforation or abscess without bleeding; I89.0 Lymphedema, not elsewhere classified; F41.8 Other specified anxiety disorders; K44.9 Diaphragmatic hernia without obstruction or gangrene; C50.912 Malignant neoplasm of unspecified site of left female breast; R77.8 Other specified abnormalities of plasma proteins; M34.0 Progressive systemic sclerosis; R50.9 Fever, unspecified; R53.1 Weakness; I11.0 Hypertensive heart disease with heart failure; D47.3 Essential (hemorrhagic) thrombocythemia; I87.8 Other specified disorders of veins; I25.119 Atherosclerotic heart disease of native coronary artery with unspecified angina pectoris; D72.829 Elevated white blood cell count, unspecified
CPT/HCPCS: 36415; 36430; 71045-TC-FY; 71275-TC; 80053; 81003; 82248; 82550; 82553; 82728; 82803; 83605; 83615; 83735; 83880; 84100; 84443; 84484; 85025; 85379; 85610; 85651; 85730; 86140; 86769; 86850; 86900; 86901; 87040; 87086; 87804; 93005; 93010; 97116-GP; 97162-GP; 99291; C9803; J0131; J1100; P9017; Q9967; U0003

== ENCOUNTER 2020-12-06 07:58 | Day surgery (SDC) | payer OTHER, BC ==
[2020-12-06] MEDS ORDERED: ZOLEDRONIC ACID/MAN/WATER 5 MG/100 ML INFUS..BTL IVPB ONE (10:00)
[2020-12-06 17:24] VITALS: TEMP 98.8
[2020-12-06 17:30] VITALS: BP 112/69; PULSE 57
== END 2020-12-06 11:35 | disposition home or self-care (01) ==
LOC: JONCCHEMO 07:58
PROVIDERS: ATTEND Internal Medicine Hematology & Oncology
PROC: 3E033GC Introduction of Other Therapeutic Substance into Peripheral Vein, Percutaneous Approach (ICD-10-PCS; principal; 2020-12-06)
DX: C50.412 Malignant neoplasm of upper-outer quadrant of left female breast (principal); Z17.0 Estrogen receptor positive status [ER+]; E55.9 Vitamin D deficiency, unspecified; M85.88 Other specified disorders of bone density and structure, other site
CPT/HCPCS: 96365; J3489

== ENCOUNTER 2023-05-16 12:25 | Day surgery (SDC) | payer BC ==
[~2023-05-16 12:25] MED LIST: SODIUM CHLORIDE 250 ML IV ONE; ZOLEDRONIC ACID/MAN/WATER 5 MG/100 ML INFUS..BTL IVPB ONE
[2023-05-16 15:03] VITALS: RESP 20; TEMP 98
[2023-05-17 08:06] VITALS: BP 102/61; PULSE 64
== END 2023-05-16 15:05 | disposition home or self-care (01) ==
LOC: JONCNONCHE 12:25
PROVIDERS: ATTEND Internal Medicine Hematology & Oncology
PROC: 3E033KZ Introduction of Other Diagnostic Substance into Peripheral Vein, Percutaneous Approach (ICD-10-PCS; principal; 2023-05-16)
DX: M85.88 Other specified disorders of bone density and structure, other site (principal); E55.9 Vitamin D deficiency, unspecified; C50.912 Malignant neoplasm of unspecified site of left female breast; Z17.0 Estrogen receptor positive status [ER+]
CPT/HCPCS: 96365; J3489